=== PATIENT | female | born 1975 | race Caucasian/White ===

== ENCOUNTER 2022-09-17 15:16 | Outpatient (OUT) | payer MEDICAID, SELFPAY ==
[2022-09-17 16:10] LABS: Internal Control Within Normal Limits; Strep A Antigen Screen Negative
== END 2022-09-17 15:17 | disposition home or self-care (01) ==
LOC: LAB 15:18
PROVIDERS: PCP Family Medicine; Visit Provider Family Medicine
DX: J02.9 Acute pharyngitis, unspecified (principal)
CPT/HCPCS: 87070; 87880